=== PATIENT | male | born 1985 | race Caucasian/White ===

== ENCOUNTER → 2021-11-22 22:53 | Emergency (ER) | payer SELFPAY ==
[~2021-11-22] VITALS: Ht 162.6 cm; Wt 77.1 kg
[2021-11-22 22:53] VITALS: BP 142/91
== END | disposition left against medical advice (07) ==
LOC: ER 22:53
DX: R51.9 Headache, unspecified (principal); R42 Dizziness and giddiness; Z53.21 Procedure and treatment not carried out due to patient leaving prior to being seen by health care provider